=== PATIENT | male | born 1935 | race Caucasian/White ===

== ENCOUNTER 2023-11-12 12:50 | Outpatient (RCR) | payer OTHER, SELFPAY ==
--- NOTE | ~2023-11-12 | XR_ITS ---
EXAMINATION: XR HIP, RIGHT CLINICAL INFORMATION: Evaluate nonhealing wound COMPARISON: None available. TECHNIQUE: Two views of the right hip. FINDINGS: No acute fracture or dislocation. Innumerable sclerotic lesions are seen throughout the pelvic and bilateral hip bones as well as the acetabulum. Suboptimal visualization of the sacroiliac joints which do not appear definitively patent. XR/XR hip RT w PEL1V IMPRESSION: Innumerable sclerotic lesions are seen throughout the pelvic and bilateral hip bones as well as the acetabulum. Suboptimal visualization of the sacroiliac joints which do not appear definitively patent. 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 The report will be called to the ordering clinician by a [facility] [employer].
== END 2024-02-20 16:08 | disposition admitted as inpatient to this hospital (09) ==
LOC: HO.WCC 12:50
PROVIDERS: PCP Nurse Practitioner Family; Visit Provider Physician Assistant
DX: L97.811 Non-pressure chronic ulcer of other part of right lower leg limited to breakdown of skin (principal); L02.214 Cutaneous abscess of groin; L30.9 Dermatitis, unspecified; I73.9 Peripheral vascular disease, unspecified; I87.2 Venous insufficiency (chronic) (peripheral); I11.0 Hypertensive heart disease with heart failure; I50.9 Heart failure, unspecified; C61 Malignant neoplasm of prostate; C79.51 Secondary malignant neoplasm of bone; Z79.2 Long term (current) use of antibiotics; Z79.899 Other long term (current) drug therapy; Z87.891 Personal history of nicotine dependence
CPT/HCPCS: 17250; 73502; 87070; 87073; 87077; 87186; 87205; 97597; 99212; 99213; 99214

== ENCOUNTER 2023-12-24 13:07 | Outpatient (AMB) | payer OTHER, SELFPAY ==
--- NOTE | 2023-12-24 13:08 | A.OFFVIS_ITS ---
Intake Visit Reasons: Ref [facility]Wound Infection
--- NOTE | 2023-12-24 13:08 | MHC.OFFVIS ---
Intake Visit Reasons: Ref [facility]Wound Infection
[2023-12-24 13:20] VITALS: PULSE 108; TEMP 36.7; O2SAT 97
--- NOTE | 2023-12-24 13:20 | A.OFFVIS_ITS ---
Vital Signs 3 12/24/23 13:20 Pulse 108 H Pulse Source Pulse Oximeter Temp 98.0 F Temp Source Oral Pulse Oximetry (%) 97 Oxygen Delivery Method Room Air Intake Visit Reasons: Ref [facility]Wound Infection Allergies atorvastatin [From Lipitor] Allergy (Unknown, Verified 12/24/23 13:49) Unknown lisinopril Allergy (Unknown, Verified 12/24/23 13:49) Unknown lovastatin Allergy (Unknown, Verified 12/24/23 13:49) Unknown rosuvastatin [From Crestor] Allergy (Unknown, Verified 12/24/23 13:49) Unknown [id number]-[id number] Reductase Inhibitor Allergy (Unknown, Verified 12/24/23 13:22) unk Sulfa (Sulfonamide Antibiotics) Allergy (Unknown, Verified 12/24/23 13:49) Unknown HPI HPI Ref [facility]Wound Infection: Details: He comes from [place] for evaluation nonhealing right groin wound. He fell two weeks ago and developed tunneling right groin wound went from 3.3 to 5.5 cm He has no fever or chills. He started with irritation skin fold 08/2023. He has MSSA in wound He has h/o prostate cancer There is no evidence of osteomyelitis. [facility] Medical History (Updated 01/01/24 @ 23:30 by Paty Cabrera MD) Right groin wound Review of Systems Const All systems reviewed & are unremarkable except as noted in HPI and below Physical Exam Vital Signs: Last Vital Signs Temp 98.0 F 12/24/23 13:20 Pulse 108 H 12/24/23 13:20 Pulse Ox 97 12/24/23 13:20 Oxygen Delivery Method Room Air 12/24/23 13:20 Const Other: Extrem Other: wound right groin Assessment & Plan Assessment & Plan (1) Right groin wound: Comment: There is no evidence OM Skin fold may have led to fungal infection and irritation Local care at this time No retirement antibiotics as area clear and open. Code(s): S31.109A - Unspecified open wound of abdominal wall, unspecified quadrant without penetration into peritoneal cavity, initial encounter Category: Medical Plan: as above Coding Level of Care Code New Pt Level 4 (87387) Diagnoses Right groin wound S31.109A
== END 2023-12-24 13:45 | disposition home or self-care (01) ==
PROVIDERS: PCP Nurse Practitioner Family; Visit Provider Internal Medicine
DX: S31.109A Unspecified open wound of abdominal wall, unspecified quadrant without penetration into peritoneal cavity, initial encounter (principal)
CPT/HCPCS: 99204

== ENCOUNTER → 2023-12-24 13:07 | Outpatient (BNVA) | payer OTHER, SELFPAY | PROVIDERS: PCP Nurse Practitioner Family; Visit Provider Internal Medicine | DX: S31.109A Unspecified open wound of abdominal wall, unspecified quadrant without penetration into peritoneal cavity, initial encounter (principal) | CPT/HCPCS: 99202 ==